=== PATIENT | male | born 1940 | race Caucasian/White ===

== ENCOUNTER → 2017-01-19 08:05 | Outpatient (CLI) | payer MEDICARE, OTHER ==
[2016-08-06 13:37] VITALS: BMI 25.0
[~2017-01-19 08:05] MED LIST: APRISO0.375 GM PO; BAYER CHEWABLE81 MG PO; OMEPRAZOLE40 MG PO; PLAVIX75 MG PO; PRAVACHOL40 MG PO
== END | disposition home or self-care (01) ==
LOC: D.RAD 08:05
DX: K50.90 Crohn's disease, unspecified, without complications (principal)

== ENCOUNTER 2018-12-12 09:45 | Emergency (ER) | payer MEDICARE, OTHER ==
[~2018-12-12] VITALS: Ht 172.7 cm; Wt 81.8 kg
[2018-12-12 09:48] VITALS: Ht 172.7 cm; Wt 81.8 kg
[2018-12-12] MEDS ORDERED: CLEOCIN HCL300 MG PO (10:41)
[2018-12-12 12:08] VITALS: BP 131/78
== END 2018-12-12 10:57 | disposition home or self-care (01) ==
LOC: D.ER 09:45
DX: L03.811 Cellulitis of head [any part, except face] (principal)

== ENCOUNTER → 2019-04-26 08:25 | Outpatient (CLI) | payer MEDICARE, OTHER ==
[2018-12-12 09:48] VITALS: BMI 27.4
[~2019-04-26 08:25] MED LIST changes: +CLEOCIN HCL300 MG PO
--- NOTE | 2019-05-01 13:55 | EC ---
PATIENT:CINTHIA THOMAS DATE OF SERVICE: 04/26/19 SEX: M MEDICAL RECORD: [id number] DATE OF : 36 [facility] AGE [facility] PAT[facility]: 78 ADMISSION DATE: 04/26/19 REFERRING PHYSICIAN: INTERPRETING PHYSICIAN: SISI MOJICA MD ECHOCARDIOGRAM REPORT ECHO CHARGES 4 ECHO COMPLETE Date: 04/26/19 CLINICAL DIAGNOSIS: CAD ECHOCARDIOGRAPHIC MEASUREMENTS (adult normal given) AC root (d.<3.7cm) 3.3 cm LV Septum d (<1.2 cm> 1.1 cm Valve Excursion 1.3 cm LV Septum (systole) 1.3 cm Left Atria (s.<4.0cm> 3.9 cm LVPW d(<1.2cm) 1.3 cm RV (d.<2.3cm) 3.4 cm LVPW (sytole) 1.4 cm LV diastole(<5.6CM) 5.3 cm MV E-F(>70mm/sec) cm LV systole 3.8 cm LVOT Diameter 1.8 cm MV exc.(>10mm) 1.4 cm Est.ejection fraction (50-75%) % DOPPLER: LVIT cm/sec A 85.0 cm/sec E 56.0 cm/sec LA cm/sec RVSP 23 mmHg LVOT 112 cm/sec AOP1/2T m/s Asc. Ao 127 cm/sec RVOT 77 cm/sec RA cm/sec PA 87 cm/sec AV Gradient Peak 6.46 mmHg AV Mean 3.17 mmHg AV Area 2.6 cm MV Gradient Peak 3.26 mmHg MV Mean 0.97 mmHg MV Area cm COMMENTS: Fitness Sales Consultant: Roverto SANDOVAL Auto Painter: 3 Dr. Dominguez TAPE# PACS Pericardial Effusion N DATE OF SERVICE: 04/26/2019 Adequate 2-D echo, color-flow and spectral Doppler, and M-mode. No LVH. LV internal dimensions are normal. Wall motion is normal. EF is greater than or equal to 55%. Aortic valve sclerosis without stenosis by Doppler interrogation. Trivial AI by color-flow imaging. Left atrium is normal at 3.9 cm. Mitral valve shows no prolapse. Trace MR. Right-sided chambers are grossly normal. Trace TR. ECHOCARDIOGRAM REPORT [id number] CINTHIA THOMAS TRANSINT:[id number] Voice Confirmation ID: [id number] DOCUMENT ID: [id number] SISI MOJICA MD at 1355 CC: [id number] DICTATION DATE: 04/27/19 1451 FLUME MAKER: 04/27/19 1604 [facility] CLI 04/26/19 [place] [id number] [place] [id number]
== END | disposition home or self-care (01) ==
LOC: D.HCCARDIO 08:25
PROVIDERS: ATTEND Internal Medicine Interventional Cardiology
DX: I25.10 Atherosclerotic heart disease of native coronary artery without angina pectoris (principal)

== ENCOUNTER 2019-07-29 23:13 | Emergency (ER) | payer MEDICARE, OTHER ==
[~2019-07-29] VITALS: Ht 172.7 cm; Wt 75.0 kg
[2019-07-29 23:17] VITALS: Ht 172.7 cm; Wt 75.0 kg
[2019-07-29] MEDS ORDERED: LISINOPRIL40 MG PO (23:18)
[2019-07-29] MEDS ORDERED: NORVASC5 MG PO (23:19)
[2019-07-29 23:35] LABS: BASOPHILS 0.4 % (0-2); EOSINOPHILS 1.9 % (0-7); HEMATOCRIT 43.3 % (42.0-54.0); HEMOGLOBIN 14.3 g/dL (13.5-17.5); IMMATURE GRANULOCYTES 0.3 % (0-5); LYMPHOCYTES 19.1 % (15-50); MCV 90.8 fL (80.0-100.0); MEAN PLATELET VOLUME 9.4 fL (7.4-10.4); MONOCYTES 9.3 % (2-11); RBC 4.77 10x6/uL (4.20-6.10); WBC 7.8 10x3/uL (4.8-10.8)
[2019-07-29 23:36] LABS: PLATELET COUNT 232 10x3/uL (130-400)
[2019-07-29 23:43] LABS: CALC OSMOLALITY 287 mosm/kg (275-300); CALCIUM 9.2 mg/dL (8.5-10.1); CARBON DIOXIDE 27.4 mmol/L (21.0-32.0); CHLORIDE - SERUM 104 mmol/L (98-107); CREATININE - SERUM 1.2 mg/dL (0.6-1.3); GLUCOSE 144 mg/dL (74-106); POTASSIUM - SERUM 4.1 mmol/L (3.5-5.1); SODIUM 140 mmol/L (136-145); UREA NITROGEN 28 mg/dL (7-18); eGFR NON AFRICAN AMERICAN 62 mL/min (90-120)
[2019-07-29 23:44] LABS: APTT 28.9 SECONDS (22.8-39.4); INR 1.04 (0.85-1.17); PROTIME 13.1 SECONDS (11.6-15.0)
[2019-07-29 23:51] LABS: ALBUMIN 3.3 g/dL (3.4-5.0); ALKALINE PHOSPHATASE 47 U/L (46-116); ALT (SGPT) 16 U/L (10-68); BILIRUBIN - TOTAL 0.32 mg/dL (0.2-1.3); TROPONIN-I < 0.017 ng/mL (0.000-0.060)
[2019-07-30 00:26] VITALS: BP 129/81
== END 2019-07-30 00:26 | disposition home or self-care (01) ==
LOC: D.ER 23:13
PROVIDERS: Family Medicine
DX: I25.10 Atherosclerotic heart disease of native coronary artery without angina pectoris (principal); I10 Essential (primary) hypertension; R73.03 Prediabetes; E78.5 Hyperlipidemia, unspecified; K50.90 Crohn's disease, unspecified, without complications; Z95.5 Presence of coronary angioplasty implant and graft

== ENCOUNTER 2020-05-01 07:51 | Emergency (ER) | payer MEDICARE, OTHER ==
[~2020-05-01] VITALS: Ht 172.7 cm; Wt 76.4 kg
[~2020-05-01 07:51] MED LIST changes: +LISINOPRIL40 MG PO; +NORVASC5 MG PO
[2020-05-01 08:00] VITALS: Ht 172.7 cm; Wt 76.4 kg
[2020-05-01] MEDS ORDERED: CARAFATE1 G PO (08:15)
[2020-05-01] MEDS ORDERED: [UNRECOGNIZED DRUG - REMARK] (08:17)
[2020-05-01 08:35] LABS: BASOPHILS 0.3 % (0-2); EOSINOPHILS 0.3 % (0-7); HEMATOCRIT 41.5 % (42.0-54.0); HEMOGLOBIN 14.2 g/dL (13.5-17.5); IMMATURE GRANULOCYTES 0.2 % (0-5); LYMPHOCYTES 9.6 % (15-50); MCH 30.1 pg (26.0-34.0); MCHC 34.2 g/dL (31.0-37.0); MCV 88.1 fL (80.0-100.0); MEAN PLATELET VOLUME 9.1 fL (7.4-10.4); MONOCYTES 6.8 % (2-11); NEUTROPHILS 82.8 % (40-80); RBC 4.71 10x6/uL (4.20-6.10); RDW 13.1 % (11.5-14.5); WBC 5.7 10x3/uL (4.8-10.8)
[2020-05-01 08:40] LABS: PLATELET COUNT 183 10x3/uL (130-400)
[2020-05-01 08:50] LABS: CALC OSMOLALITY 283 mosm/kg (275-300); CALCIUM 10.1 mg/dL (8.5-10.1); CARBON DIOXIDE 28.4 mmol/L (21.0-32.0); CHLORIDE - SERUM 106 mmol/L (98-107); CREATININE - SERUM 1.1 mg/dL (0.6-1.3); GLUCOSE 148 mg/dL (74-106); POTASSIUM - SERUM 3.9 mmol/L (3.5-5.1); SODIUM 139 mmol/L (136-145); UREA NITROGEN 21 mg/dL (7-18); eGFR NON AFRICAN AMERICAN 68 mL/min (90-120)
[2020-05-01 08:55] LABS: INR 0.95 (0.85-1.17); PROTIME 12.6 SECONDS (11.6-15.0)
[2020-05-01 08:56] LABS: APTT 28.1 SECONDS (22.8-39.4)
[2020-05-01 09:06] LABS: ALBUMIN 3.3 g/dL (3.4-5.0); ALKALINE PHOSPHATASE 40 U/L (30-120); ALT (SGPT) 17 U/L (10-68); BILIRUBIN - TOTAL 0.37 mg/dL (0.2-1.3); CKMB 0.7 U/L (0.0-3.6); CREATINE KINASE 56 UL (21-232); MAGNESIUM - SERUM 2.3 mg/dL (1.8-2.4); PROTEIN - SERUM 6.7 g/dL (6.4-8.2); THYROID STIMULATING HORMONE 2.15 uIU/mL (0.36-3.74); TROPONIN-I 0.044 ng/mL (0.000-0.060)
[2020-05-01] MEDS ORDERED: MECLIZINE HCL25 MG PO (11:09)
[2020-05-01] MEDS ORDERED: ZOFRAN ODT4 MG/UDTAB PO (11:09)
[2020-05-01 12:35] VITALS: BP 137/69
== END 2020-05-01 12:35 | disposition home or self-care (01) ==
LOC: D.ER 07:51
PROVIDERS: Family Medicine
DX: R42 Dizziness and giddiness (principal); R11.2 Nausea with vomiting, unspecified; I10 Essential (primary) hypertension; R73.03 Prediabetes

== ENCOUNTER → 2020-05-07 09:45 | Outpatient (CLI) | payer MEDICARE, OTHER ==
[2020-05-01 08:00] VITALS: BMI 25.6
[~2020-05-07 09:45] MED LIST changes: +CARAFATE1 G PO; +MECLIZINE HCL25 MG PO; +ZOFRAN ODT4 MG/UDTAB PO; +[UNRECOGNIZED DRUG - REMARK]
--- NOTE | 2020-05-09 14:25 | EC ---
PATIENT:CINTHIA THOMAS DATE OF SERVICE: 05/07/20 SEX: M MEDICAL RECORD: [id number] DATE OF : 36 [facility] 79 ADMISSION DATE: 05/07/20 REFERRING PHYSICIAN: INTERPRETING PHYSICIAN: SISI MOJICA MD ECHOCARDIOGRAM REPORT ECHO CHARGES 4 ECHO COMPLETE Date: 05/07/20 CLINICAL DIAGNOSIS: HX OF HTM/CAD ASSESS EF AND VALVES ECHOCARDIOGRAPHIC MEASUREMENTS (adult normal given) AC root (d.<3.7cm) 3.9 cm LV Septum d (<1.2 cm> 1.1 cm Valve Excursion 1.6 cm LV Septum (systole) 1.3 cm Left Atria (s.<4.0cm> 2.9 cm LVPW d(<1.2cm) 1.2 cm RV (d.<2.3cm) 4.4 cm LVPW (sytole) 1.5 cm LV diastole(<5.6CM) 5.1 cm MV E-F(>70mm/sec) cm LV systole 4.0 cm LVOT Diameter 2.0 cm MV exc.(>10mm) cm Est.ejection fraction (50-75%) % DOPPLER: LVIT cm/sec A 75.0 cm/sec E 48.0 cm/sec LA cm/sec RVSP 14 mmHg LVOT 90 cm/sec AOP1/2T 631 m/s Asc. Ao 134 cm/sec RVOT 70 cm/sec RA cm/sec PA 85 cm/sec AV Gradient Peak 7.18 mmHg AV Mean 4.13 mmHg AV Area 2.0 cm MV Gradient Peak 3.90 mmHg MV Mean 1.14 mmHg MV Area cm COMMENTS: Budget Record Clerk: 2 CHELY SANDOVAL Paper Folding Machine Operator: 3 Dr. Dominguez TAPE# PACS Pericardial Effusion N DATE OF SERVICE: Adequate 2D, color flow imaging, spectral Doppler and M-mode. No LVH. LV internal dimension is normal. Wall motion is normal. EF is greater than or equal to 55%. Aortic valve is tricuspid. No evidence of stenosis by Doppler interrogation. Left atrium is normal at 3.9 cm. Mitral valve shows no prolapse. Trace MR. Right-sided chambers grossly normal. Trace TR. TRANSINT:[id number] Voice Confirmation ID: [id number] DOCUMENT ID: [id number] ECHOCARDIOGRAM REPORT [id number] CINTHIA THOMAS,SISI Lugo MD at 1425 CC: [id number] DICTATION DATE: 05/08/20 1218 TAILER OFF: 05/08/202115 [facility] CLI 05/07/20 [place] [id number] [place] [id number]
== END | disposition home or self-care (01) ==
LOC: D.HCCECHO 09:45
PROVIDERS: ATTEND Internal Medicine Interventional Cardiology
DX: I25.10 Atherosclerotic heart disease of native coronary artery without angina pectoris (principal)